=== PATIENT | female | born 2000 | race Caucasian/White ===

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

== ENCOUNTER 2021-11-26 09:22 | Emergency (ER) | payer MEDICAID, OTHER ==
[~2021-11-26] VITALS: Ht 160 cm; Wt 68.0 kg
--- NOTE | 2021-11-26 09:38 | NUR ---
DR REYEZ AT BEDSIDE
[2021-11-26 10:21] VITALS: BP 123/72
--- NOTE | 2021-11-26 10:21 | NUR ---
Patient discharged to home in stable condition. Written and verbal after care instructions given. Patient verbalizes understanding of instruction.
== END 2021-11-26 10:21 | disposition home or self-care (01) ==
LOC: ER 09:24
DX: H91.92 Unspecified hearing loss, left ear (principal); H93.12 Tinnitus, left ear